=== PATIENT | male | born 1980 | race Caucasian/White ===

== ENCOUNTER 2018-11-17 07:13 | Day surgery (SDC) | payer BC ==
[~2018-11-17] VITALS: Ht 185.4 cm; Wt 79.3 kg
[~2018-11-17 07:13] MED LIST: CLON-412 PO; OMEP40CA6 PO; OMEP5POW MC; anti anxiety; norco PO; protonix PO; stool softener PO; sucralfate PO
[2018-11-17 08:02] VITALS: Ht 185.4 cm; Wt 79.3 kg
[2018-11-17 08:21] VITALS: BP 110/68; PULSE 88; RESP 16
[2018-11-17] MEDS ORDERED: LIDOCAINE 4% SOLUTION 50 ML BTL ONE (08:48)
[2018-11-17] MEDS ORDERED: PROPOFOL 60 ML ONE (08:53)
[2018-11-17] MEDS ORDERED: LIDOCAINE 2% (SDV) 5 ML INJ ONE ×2 (08:53→08:54)
[2018-11-17] MEDS ORDERED: PROPOFOL 20 ML ONE (08:54)
[2018-11-17] MEDS ORDERED: ETOMIDATE 20 MG INJ ONE (08:54)
[2018-11-17] MEDS ORDERED: FENTAnyl 50 MCG/ML VIAL ONE (08:54)
[2018-11-17] MEDS ORDERED: MIDAZOLAM 1 MG/ML 2 ML INJ ONE (08:54)
[2018-11-17 09:47] VITALS: BP 121/74; PULSE 75; RESP 18
== END 2018-11-17 11:41 | disposition home or self-care (01) ==
LOC: GIL 07:13
PROVIDERS: ATTEND Internal Medicine Gastroenterology
DX: R19.4 Change in bowel habit (principal); K64.8 Other hemorrhoids; K29.60 Other gastritis without bleeding
CPT/HCPCS: 43239; 45378; 88305; 88312; J2250; J3010; Z7610